=== PATIENT | male | born 1995 | race Hispanic/Latino ===

== ENCOUNTER 2020-07-30 13:34 | Emergency (ER) | payer BC, OTHER ==
[~2020-07-30] VITALS: Ht 182.9 cm; Wt 83.6 kg
[2020-07-30] MEDS ORDERED: AUGMENTIN 500-1 EACH PO (14:06)
[2020-07-30] MEDS ORDERED: TETANUS/DIPHTHERIA TOX ADULT 0.5 ML SYR ONE (14:14)
[2020-07-30] MEDS ORDERED: TETANUS/DIPHTHERIA TOX ADULT 0.5 ML SYR IM ONE (14:15)
== END 2020-07-30 14:16 | disposition home or self-care (01) ==
LOC: FSED 14:05
DX: S51.011A Laceration without foreign body of right elbow, initial encounter (principal); W22.09XA Striking against other stationary object, initial encounter; Y99.0 Civilian activity done for income or pay
CPT/HCPCS: 90714; 99283